=== PATIENT | male | born 2000 | race Hispanic/Latino ===

== ENCOUNTER → 2024-07-15 | Outpatient (CLI) | payer OTHER ==
--- NOTE | 2024-07-15 17:31 | HMCIMG ---
US THYROID/NECK HISTORY: Nontoxic single thyroid nodule COMPARISON: None TECHNIQUE: Thyroid ultrasound study was performed. FINDINGS: Right thyroid lobe measures 5.1 x 2.5 x 1.6 cm. Left thyroid lobe measures 3.4 x 1.2 x 1.1 cm. There is right lower pole thyroid mass measuring 3.3 x 2.2 x 3.3 cm. This has been biopsied previously and pathology report correlation is recommended. IMPRESSION: 1. Right lower thyroid mass measuring 3.3 x 2.2 x 3.3 cm. This was reported to be biopsied previously per patient.
== END | disposition home or self-care (01) ==
LOC: RAH 14:45 → EEVIPCON 14:45
PROVIDERS: ATTEND Physician Assistant
DX: E04.1 Nontoxic single thyroid nodule (principal)
CPT/HCPCS: 76536